=== PATIENT | female | born 1995 | race Caucasian/White ===

== ENCOUNTER 2021-10-14 07:54 | Outpatient (CLI) | payer OTHER ==
[~2021-10-14 07:54] MED LIST: CAVAN-FOLATE D1 EACH PO
== END 2021-10-14 08:45 | disposition home or self-care (01) ==
LOC: PRENATAL 07:54
PROVIDERS: ATTEND Obstetrics & Gynecology Maternal & Fetal Medicine
DX: O35.0XX1 Maternal care for (suspected) central nervous system malformation in fetus, fetus 1 (principal); O35.3XX1 Maternal care for (suspected) damage to fetus from viral disease in mother, fetus 1; O98.512 Other viral diseases complicating pregnancy, second trimester; O34.12 Maternal care for benign tumor of corpus uteri, second trimester; Z36.89 Encounter for other specified antenatal screening; Z3A.22 22 weeks gestation of pregnancy

== ENCOUNTER 2022-02-02 09:44 | Outpatient (CLI) | payer OTHER | END 2022-02-02 10:20 | disposition home or self-care (01) | LOC: NST 09:44 | PROVIDERS: ATTEND Specialist | DX: Z34.83 Encounter for supervision of other normal pregnancy, third trimester (principal) ==

== ENCOUNTER 2022-02-04 22:11 | Inpatient (IN) | payer OTHER ==
[~2022-02-04] VITALS: Ht 154.9 cm; Wt 68.9 kg
== END 2022-02-07 13:30 | disposition home or self-care (01) | DRG 807 ==
LOC: LDR 22:11 → OB/GYN 22:11
PROVIDERS: ADMIT Specialist; ATTEND Specialist
PROC: 10E0XZZ Delivery of Products of Conception, External Approach (ICD-10-PCS; principal; 2022-02-04)
PROC: 4A1HXCZ Monitoring of Products of Conception, Cardiac Rate, External Approach (ICD-10-PCS; 2022-02-04)
DX: O80 Encounter for full-term uncomplicated delivery (principal); Z37.0 Single live birth; Z3A.38 38 weeks gestation of pregnancy; Z20.822 Contact with and (suspected) exposure to COVID-19